=== PATIENT | male | born 1995 | race Caucasian/White ===

== ENCOUNTER → 2017-04-04 | Outpatient (CLI) | payer OTHER ==
[~2017-04-04] MED LIST: RIFA300C34 PO; SULF800T23 PO
== END | disposition home or self-care (01) ==
LOC: C.RDSM 11:20
PROVIDERS: ATTEND Orthopaedic Surgery Sports Medicine
DX: S62.609A Fracture of unspecified phalanx of unspecified finger, initial encounter for closed fracture (principal); X58.XXXA Exposure to other specified factors, initial encounter

== ENCOUNTER → 2017-04-18 | Outpatient (CLI) | payer OTHER | END | disposition home or self-care (01) | LOC: C.RDSM 08:00 | PROVIDERS: ATTEND Orthopaedic Surgery Sports Medicine | DX: S62.606A Fracture of unspecified phalanx of right little finger, initial encounter for closed fracture (principal); X58.XXXA Exposure to other specified factors, initial encounter ==

== ENCOUNTER → 2017-04-25 | Outpatient (CLI) | payer OTHER | END | disposition home or self-care (01) | LOC: C.RDSM 10:36 | PROVIDERS: ATTEND Orthopaedic Surgery Sports Medicine | DX: S62.60 Fracture of unspecified phalanx of finger (principal); X58.XXXA Exposure to other specified factors, initial encounter ==

== ENCOUNTER → 2017-05-09 | Outpatient (CLI) | payer OTHER | END | disposition home or self-care (01) | LOC: C.RDSM 08:00 | PROVIDERS: ATTEND Orthopaedic Surgery Sports Medicine | DX: S62.60 Fracture of unspecified phalanx of finger (principal); X58.XXXA Exposure to other specified factors, initial encounter ==